=== PATIENT | female | born 1940 | race Caucasian/White ===

== ENCOUNTER → 2018-07-20 | Outpatient (CLI) | payer OTHER | LOC: FIMAGING 14:53 | PROVIDERS: ATTEND Orthopaedic Surgery | DX: M17.11 Unilateral primary osteoarthritis, right knee (principal) ==

== ENCOUNTER 2018-07-28 08:50 | Inpatient (IN) | payer OTHER ==
--- NOTE | 2018-07-28 06:17 | PDHPUP ---
History & Physical Update H&P update statement: This history and physical update is based on an assessment of the patient which was completed after admission or registration (within 24 hours), but prior to the surgery/procedure. H&P update: H&P reviewed & patient examined, no change in patient's condition since H&P completed
[~2018-07-28 08:50] MED LIST: ROPIVACAINE 0.2% 80 MG, EPINEPHrine 0.2 MG, KETOROLAC TROMETHAMINE 30 MG in SYRINGE 0 ML IU ONE; TRANEXAMIC ACID 3,000 MG in NS (SYRINGE) 50 ML IRR ONE; TRANEXAMIC ACID 3,000 MG/50 ML BAG IRR ONE
[2018-07-28] MEDS ORDERED: DEXAMETHASONE 4 MG/ML VIAL IVP ONE (09:34)
[2018-07-28] MEDS ORDERED: ACETAMINOPHEN 325 MG TAB PO ONE (09:34)
[2018-07-28] MEDS ORDERED: FAMOTIDINE 20 MG TAB PO ONE (09:34)
[2018-07-28] MEDS ORDERED: ceFAZolin 2 GM/DEXTROSE 100 ML IV ONE (09:34)
[2018-07-28] MEDS ORDERED: LIDOCAINE 1% 2 ML INJ ID PRN (09:35)
[2018-07-28] MEDS ORDERED: LR 1,000 ML IV ONE (09:35)
--- NOTE | 2018-07-28 10:10 | PDANEPAE ---
ANE History of Present Illness right knee pain ANE Past Medical History - Cardiovascular History Hx Hypertension: No Hx Arrhythmias: No Hx Chest Pain: No Hx Coronary Artery / Peripheral Vascular Disease: No Hx CHF / Valvular Disease: No Hx Palpitations: No - Pulmonary History Hx COPD: No Hx Asthma/Reactive Airway Disease: No Hx Recent Upper Respiratory Infection: No Hx Oxygen in Use at Home: No Hx Sleep Apnea: No Sleep Apnea Screening Result - Last Documented: Negative - Neurologic History Hx Cerebrovascular Accident: No Hx Seizures: No Hx Dementia: No - Endocrine History Hx Diabetes: No Hypothyroid: No Hyperthyroid: No Obesity: no - Renal History Hx Renal Disorders: No - Liver History Hx Hepatic Disorders: No - Neurological & Psychiatric Hx Hx Neurological and Psychiatric Disorders: No Neurological / Psychiatric History Comment: pt passed 5 mnths ago - Cancer History Hx Cancer: No - Congenital Disorder History Hx Congenital Disorders: No - GI History GERD: no Hx Gastrointestinal Disorders: Yes Gastrointestinal History Comment: hx of ulcer. 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 right knee scope ANE Review of Systems Review of systems is: negative Review of Systems: - Exercise capacity Exercise capacity: >=4 METS METS (RN): 4 METS ANE Patient History - Allergies Allergies/Adverse Reactions: No Known Allergies Allergy (Verified 06/25/18 09:44) - Home Medications Home medications: home medication list seen and reviewed Home Medications: Carboxymethylcellulose 1% [Refresh Celluvisc (*)] 1 drop EACHEYE DAILY PRN 06/25 [Last Taken 07/28/18 08:00] Cholecalciferol Vit D3 [Vitamin D3 (*)] 1,000 units PO DAILY 06/25/18 [Last Taken 07/14/18] Cyanocobalamin [Vitamin B12 (*)] 1,000 mcg PO DAILY 06/25/18 [Last Taken ] Herbals/Supplements -Info Only 1 ea PO DAILY 06/25/18 [Last Taken 07/14/18] Ibuprofen [Motrin (*)] 200 mg PO DAILY PRN 06/25/18 [Last Taken 07/14/18] Multivitamins [Multivitamin (*)] 1 each PO DAILY 06/25/18 [Last Taken 07/14/18] - NPO status NPO Status: no food or drink >8 hours - Anes Hx Anes Hx: no prior problems - Smoking Hx Smoking Status: Never smoked - Family Anes Hx Family Anes Hx: none Family Hx Anesthesia Complications: none ANE Labs/Vital Signs - Vital Signs Height: 162.56 cm Weight: 79.379 kg ANE Physical Exam - Airway Neck exam: FROM Mallampati Score: Class 1 Mouth exam: normal dental/mouth exam - Pulmonary Pulmonary: no respiratory distress - Cardiovascular Cardiovascular: regular rate and rhythym - ASA Status ASA Status: II ANE Anesthesia Plan Anesthesia Plan: spinal Regional Anesthesia: adductor canal FNB
[2018-07-28] MEDS ORDERED: PROPOFOL/EMULSION 500 MG/50 ML BOTTLE IV ONE (10:18)
[2018-07-28] MEDS ORDERED: BUPIVACAINE/DEXTROSE 7.5MG/ML 2 ML SPINAL AMP SP ONE (11:03)
[2018-07-28] MEDS ORDERED: METOCLOPRAMIDE 10 MG/2 ML VIAL IVP PRN ×2 (11:49→12:43)
[2018-07-28] MEDS ORDERED: NALOXONE HCL 0.4 MG/ML INJ IVP PRN (11:49)
[2018-07-28] MEDS ORDERED: HYDROmorphONE/DILAUDID 2 MG/ML INJ IVP PRN (11:49)
[2018-07-28] MEDS ORDERED: LABETALOL HCL 5 MG/ML 20 ML MDV IVP PRN (11:49)
[2018-07-28] MEDS ORDERED: DEXAMETHASONE 4 MG/ML VIAL IVP PRN (11:49)
[2018-07-28] MEDS ORDERED: ACETAMINOPHEN 500 MG TAB PO PRN (11:49)
[2018-07-28] MEDS ORDERED: PHENYLEPHRINE HCL 100 MCG/ML SYR IVP PRN (11:49)
[2018-07-28] MEDS ORDERED: LR 500 ML IV PRN (11:49)
[2018-07-28] MEDS ORDERED: ONDANSETRON 4 MG/2 ML VIAL IVP PRN ×2 (11:49→12:43)
[2018-07-28] MEDS ORDERED: ALBUTEROL 3 ML DEYVIAL IH PRN (11:49)
[2018-07-28] MEDS ORDERED: PROMETHAZINE HCL 25 MG/ML INJ IVP PRN ×2 (11:49→12:43)
[2018-07-28] MEDS ORDERED: oxyCODONE IR 5 MG TAB PO PRN (11:49)
[2018-07-28] MEDS ORDERED: MEPERIDINE 25 MG/0.5 ML AMP IVP PRN (11:49)
[2018-07-28] MEDS ORDERED: fentaNYL 100 MCG/2 ML INJ IVP PRN (11:49)
[2018-07-28] MEDS ORDERED: ROPIVACAINE HCL 100 MG/20 ML INJ ONE (11:57)
[2018-07-28] MEDS ORDERED: PROPOFOL 200 MG/20 ML VIAL ONE (11:57)
--- NOTE | 2018-07-28 12:42 | POSTOPPROG ---
Post Op Note Date of Operation: 07/28/18 Surgeon: Addi العلي Med Surg Nurse: waldo العلي PA-C Anesthesiologist: dr. perez Anesthesia: Spinal, Other (Specify) (adductor canal block) Pre-op Diagnosis: right knee OA Post-op Diagnosis: same Indication: right knee pain Procedure: R TKA robot assisted Findings: severe knee OA Inf/Abcess present in the surg proc area at time of surgery?: No EBL: 50-100
[2018-07-28] MEDS ORDERED: PROMETHAZINE HCL 25 MG SUPPR PR PRN (12:43)
[2018-07-28] MEDS ORDERED: DIPHENOXYLATE/ATROPINE LOMOTIL 1 TAB PO PRN (12:43)
[2018-07-28] MEDS ORDERED: TEMAZEPAM 15 MG CAP PO PRN (12:43)
[2018-07-28] MEDS ORDERED: LACTULOSE 20 GM/30 ML UDCUP PO PRN (12:43)
[2018-07-28] MEDS ORDERED: BISACODYL 10 MG SUPP PR PRN (12:43)
[2018-07-28] MEDS ORDERED: ONDANSETRON DISINTEGRATING 4 MG TAB PO PRN (12:43)
[2018-07-28] MEDS ORDERED: MAGNESIUM HYDROXIDE 30 ML UDCUP PO PRN (12:43)
[2018-07-28] MEDS ORDERED: POLYETHYLENE GLYCOL 3350 17 GM PKT PO PRN (12:43)
[2018-07-28] MEDS ORDERED: diphenhydrAMINE 25 MG CAP PO PRN (12:43)
[2018-07-28] MEDS ORDERED: NON-FORMULARY NEW DRUG (Carboxymethylcellulose 1% [Refresh Celluvisc (*)] 1 DROP) EACHEYE PRN (12:45)
[2018-07-28] MEDS ORDERED: LR 1,000 ML IV SCH (13:00)
--- NOTE | 2018-07-28 13:31 | PDMN ---
Medical Necessity Medical [place] [facility] [place] OP: R TKA -- AUTH# [id number] APPROVED FOR CPT 21904 DONE INPT LOS 2 DAYS
--- NOTE | 2018-07-28 14:03 | POSTANESTH ---
Post Anesthetic Evaluation Cardiovascular Status: Normal, Stable Respiratory Status: Normal, Stable Level of Consciousness/Mental Status: Can Participate in Eval Pain Control: Adequate, Prn Tx Ordered Nausea/Vomiting Control: Adequate, Prn Tx Ordered Complications Possibly Related to Anesthesia: None Noted
[2018-07-28] MEDS: CYCLOBENZAPRINE 10 MG TAB PO PRN (17:04)
[2018-07-28] MEDS: ACETAMINOPHEN 325 MG TAB PO SCH ×2 (17:04→23:27)
[2018-07-28] MEDS: oxyCODONE IR 5 MG TAB PO PRN ×2 (18:37→23:26)
[2018-07-28] MEDS: ceFAZolin 2 GM/DEXTROSE 100 ML IV SCH (20:05)
[2018-07-28] MEDS: SENNOSIDES/DOCUSATE SODIUM TAB PO SCH (20:08)
[2018-07-28] MEDS: ASPIRIN 81 MG CHEWABLE TAB PO SCH (20:09)
[2018-07-28] MEDS: FAMOTIDINE 20 MG TAB PO SCH (20:09)
[2018-07-29] MEDS: ceFAZolin 2 GM/DEXTROSE 100 ML IV SCH (03:14)
[2018-07-29] MEDS: oxyCODONE IR 5 MG TAB PO PRN ×5 (03:18→21:19)
[2018-07-29] MEDS: ACETAMINOPHEN 325 MG TAB PO SCH ×3 (05:41→17:46)
[2018-07-29] MEDS: SENNOSIDES/DOCUSATE SODIUM TAB PO SCH ×2 (09:14→21:22)
[2018-07-29] MEDS: FAMOTIDINE 20 MG TAB PO SCH ×2 (09:15→21:22)
[2018-07-29] MEDS: ASPIRIN 81 MG CHEWABLE TAB PO SCH ×2 (09:15→21:22)
--- NOTE | 2018-07-29 09:20 | GOP ---
DATE OF OPERATION: 07/28/2018 SURGEON: Romie Lieberman MD RECORD LABEL INTERNSHIP: Ayana Lieberman, JULIANA ANESTHESIA: Spinal. PREOPERATIVE DIAGNOSIS: Right knee osteoarthritis. POSTOPERATIVE DIAGNOSIS: Right knee osteoarthritis. PROCEDURE PERFORMED: Right total knee arthroplasty with computer navigation, robotic assist. FINDINGS: ESTIMATED BLOOD LOSS: 30 cc. INDICATIONS: The patient is a 77-year-old female with severe and progressive pain and deformity of t he right knee unresponsive to conservative care. The risks and benefits of surgical intervention wer e explained in detail. DESCRIPTION OF PROCEDURE: The patient was brought to the operative room and placed on the table in t he supine position. Spinal anesthesia was induced without difficulty. A pneumatic tourniquet was appl ied about the right proximal thigh, and the leg was prepped and draped in a sterile fashion. The leg bee was applied. After exsanguination by elevation the tourniquet was inflated to 250 mmHg. Incision was made anterior medial from the tibial tuberosity to a point 32 cm proximal to the superio r pole of the patella. Medial parapatellar arthrotomy was carried out from the superior pole of the p atella and posteriorly in line with the fibers of the Type II VMO. The medial collateral ligament was elevated and the infrapatellar fat pad was resected. The patella was everted and the articular surface was excised. A 3 mm patellar button was placed. Attention was turned first to the distal aspect of the femur. After exposure of the femur, 2 half pi ns were placed for fixation of the femoral array. In a similar fashion, 2 pins were placed anteromed ial on the tibia for fixation of the tibial array. External land marking and registration of the hip center was performed without difficulty. Internal femoral and tibial registration was carried out w ithout difficulty and the femoral and tibial checkpoints were placed and verified for accuracy. Attention was turned to the femur. The foot print for the size 3 femoral component was cut with the saw using the [employer] robotic system and verified for accuracy against the CT based plan. In a similar f ashion, the saw was used to cut the footprint for the size 3 tibial component using the [employer] system an d verified for accuracy against the CT based plan. The tibial articular surface was excised without d ifficulty, followed by the intercondylar box cut. The knee was extended and the remnants of the medial and lateral meniscus were excised. The posterior capsule was injected with ropivacaine, epinephrine and Toradol. A size 3 tibial tray was positioned . Trial reduction was then carried out. There was excellent range of motion, alignment, and stability using the 3 x 9 mm polyethylene. All trials were then removed. The joint was thoroughly irrigated and carefully dried. The press-fit c omponents were implanted. The permanent 3 x 9 mm polyethylene was placed without difficulty. The tourniquet was deflated and all bleeders were coagulated. The wound was thoroughly irrigated and closed using interrupted sutures of 2-0 Vicryl for the joint capsule. The subcu was closed with 3-0 V icryl and the skin with 4-0 Monocryl. Dermabond and Steri-Strips were applied followed by a compress susie dressing. The patient was then moved from the operating room to the recovery room in good conditi on, having tolerated the procedure well. /[id number]/MODL
--- NOTE | 2018-07-29 09:24 | SOAPPROG ---
SOAP Progress Note Assessment/Plan: Assessment: Patient is doing well POD 1 s/p Pain management: pain is well controlled on oral pain meds. VTE ppx: recommend 81 mg aspirin morning and evening for 4 weeks, cont SHAWN and SCDs Anemia: level is expected initially postop. Asymptomatic. Continue to monitor D/c planning:patient has done much better than anticipated. Patient is stable, BP stable, pain well controlled and patient is eager for discharge to home. May d/c to home today pending release from PT Plan: 07/29/18 09:21 Subjective: No nausea, vomiting, chest pain, or shortness of breath. Pain well-controlled. Objective: Vital Signs Temp Pulse Resp BP Pulse Ox 36.5 C 65 15 107/56 L 95 07/29/18 07:45 07/29/18 07:45 07/29/18 07:45 07/29/18 07:45 07/29/18 07:45 Laboratory Results 07/29/18 04:21 07/29/18 04:21 07/28/18 07/29/18 07/30/18 05:59 05:59 05:59 Intake Total 1580 Output Total 575 Balance 1005 RLE: incision dressing clean and dry, NVI, positive PF/DF ICD10 Worksheet Patient Problems: Problems Problem Status Onset Primary osteoarthritis of right knee Acute Dislocation of shoulder, anterior, left, closed Acute
--- NOTE | 2018-07-29 10:05 | ASMTLACE ---
LACE Length of stay for Answers: 2 days current admission Acuity / Level of Answers: Yes Care: Did the patient have an inpatient admission? Comorbidities - select Answers: Opioid dependence all that apply / Chronic pain # of Emergency department Answers: 0 visits in the last 6 months Score: 9 Date Signed: 07/29/2018 10:05 AM Electronically Signed By:ANGELIA Palm
[2018-07-29] MEDS: CYCLOBENZAPRINE 10 MG TAB PO PRN (15:16)
[2018-07-30] MEDS: ACETAMINOPHEN 325 MG TAB PO SCH ×3 (00:46→11:30)
[2018-07-30] MEDS: oxyCODONE IR 5 MG TAB PO PRN ×4 (03:50→14:38)
[2018-07-30] MEDS: ASPIRIN 81 MG CHEWABLE TAB PO SCH (09:05)
[2018-07-30] MEDS: FAMOTIDINE 20 MG TAB PO SCH (09:05)
[2018-07-30] MEDS: SENNOSIDES/DOCUSATE SODIUM TAB PO SCH (09:05)
[2018-07-30] MEDS: CYCLOBENZAPRINE 10 MG TAB PO PRN (10:38)
[2018-07-30 11:37] VITALS: BP 120/54
--- NOTE | 2018-07-30 13:45 | PDIAF ---
- Diagnosis Diagnosis: s/p right TKA Code Status: Full Code - Medication Management Discharge Medications: electronically signed and located in the Home Medication List. PICC Care - Routine: N/A - Orders Services needed: Physical Therapy Isolation Type: None Diet Recommendation: no restrictions on diet Diet Texture: Regular Texture Diet Carroll: Not applicable Shawn Stockings Discontinue Date: wear during the day for 2 weeks Wound Care Instructions: Can shower but do not soak incision. Remove roblero dressing after 2 weeks and allow steri-strips to come off on their own. Activity/Weight Bearing Restrictions: No weighted flexion/extension of knee for 6 weeks Additional Instructions: Joint Protocol-Knee Replacement Follow up with Dr. Ocasio office as scheduled You received an adductor canal block yesterday. This covers a significant portion of the pain in the knee. When the numbness to your anterior shins is no longer there, the pain will worsen. If you have not already started taking narcotic pain medications, we recommend starting today even just half a pill at a time so that it is not a surprise when the nerve block wears off today. After surgery instructions: Take Aspirin 81mg by mouth twice daily for 4 weeks (helps to prevent blood clots ) Wear thigh high SHAWN hose on both legs during the daytime for 2 weeks (helps to prevent blood clots and decrease swelling in the surgical leg). It is ok to remove SHAWN hose at night time to give your legs a break. It is common for swelling and bruising to occur in the entire surgical leg even extending to the foot, if concerned call Dr. Bill office [phone] Elevate the surgical leg with the ankle above the hip several times a day. Ideally anytime you are resting throughout the day. Attempt to keep the knee straight while elevating by placing pillows under the ankle instead of the knee to elevate. This may be painful, so please do as much as tolerated. This will help you achieve full knee extension. Use a walker for 7-14 days Start outpatient physical therapy in 7-10 days Wear an ora wrap on the knee for 3-4 days after surgery, then it is no longer needed Do exercises in the book 2-3 times a day Ice at least 3-5 times a day for 30 minutes each time, if not more often. We also recommend using the ice machine before falling asleep to help with pain If you have further questions that are not addressed here, please look at the information packet handed to you at the preop appointment. Most will be answered on the FAQs, after surgery instructions and incision care pages. *IF YOU HAVE A LIFE THREATENING EMERGENCY, CALL 911. FOR NON-LIFE THREATENING ISSUES, PLEASE CALL DR. OCASIO OFFICE FIRST. A PHYSICIAN IS FOREIGN TRADE TEACHER 26/01. Incision/Dressing Care: May shower tomorrow, do not submerge in water. you do not have to cover the incision dressing for showers Keep the incision (roblero) dressing clean and dry. If the incision dressing gets soiled or wet underneath, change dressing to the dressing given to you by the hospital. (roblero dressing will turn black if drainage occurs) Remove incision dressing (roblero one) two weeks after surgery. Leave steri strips alone. They will fall off on their own. Do not have anyone else remove the incision dressing prior to the stated recommendation (2 weeks after surgery). If there are incision concerns, contact Dr. Bill office. (Ayana or Dr. Lieberman may remove earlier if concerns arise) If incision site (roblero dressing) has drainage call Dr. Bill office, . Ayana and Dr. Lieberman may ask you to come into the office for further evaluation - Follow Up Care Current Providers and Referrals: Tam Corbett MD [Primary Care Provider] - Ayana Lieberman PA [Physician Neonatal Intensive Care Nurse] - 08/19/18 10:15 am
--- NOTE | 2018-07-30 13:55 | PDFACE2FAC ---
Face to Face Encounter 1. I certify that this patient is under my care and that I, or a nurse practitioner or physician's bus assistant working with me, had a [id number] encounter that meets the physician [id number] encounter requirements with this patient on 07/30/18. 2. I certify that based on my findings, the following services are medically necessary home health services: [ Nursing] [X Physical Therapy] [ Speech-Language Pathology] 3. The medical condition and clinical findings that support the need for specialized skills, knowledge and judgement of the above services are: [s/p R TKA and advanced age] 4. I certify this patient is homebound* because [the patient's condition restricts their ability to leave their home except with the assistance of another individual or the aid of a supportive device.] __patient is using a FWW and cannot drive postop R TKA I certify that this patient is confined to his/her home and needs intermittent mcc care, physical and/or speech therapy. This patient is under my care and I have authorized home health services. * Homebound is defined by Medicare as follows: absences from home require considerable and tacking effort and or for medical reasons or religion services or are infrequent or of short duration when for other reasons*.
--- NOTE | 2018-07-30 14:03 | SOAPPROG ---
SOAP Progress Note Assessment/Plan: Assessment: Patient is doing well POD 1 s/p Pain management: pain is well controlled on oral pain meds. VTE ppx: recommend 81 mg aspirin morning and evening for 4 weeks, cont SHAWN and SCDs Anemia: level is expected initially postop. Asymptomatic. Continue to monitor D/c planning: Patient is stable, BP stable, pain well controlled and patient is eager for discharge to home. Will d/c home today. Pt. requests in-home PT. Plan: 07/29/18 09:21 07/30/18 14:00 Subjective: No nausea, vomiting, chest pain or shortness of breath. Pain well-controlled. After two nights in hospital, pt. is ready to be discharged to home today. She has family to help care for her at home but requests in-home PT. Objective: Vital Signs Temp Pulse Resp BP Pulse Ox 36.8 C 85 16 120/54 L 96 07/30/18 11:36 07/30/18 11:36 07/30/18 11:36 07/30/18 11:36 07/30/18 11:36 Laboratory Results 07/30/18 04:29 07/29/18 04:21 07/29/18 07/30/18 07/31/18 05:59 05:59 05:59 Intake Total 1580 800 240 Output Total 002 835 6403 Balance 1005 0 -1260 RLE: incision dressing clean and dry, NVI, positive PF/DF ICD10 Worksheet Patient Problems: Problems Problem Status Onset Primary osteoarthritis of right knee Acute Dislocation of shoulder, anterior, left, closed Acute
--- NOTE | 2018-07-30 15:27 | ASMTCMCOM ---
CM Note CM Note Notes: Pt had planned OA of knee. PT rec home/outpatient. ordered [facility] PT. Pt and family were informed about [facility] preferred HC providers but they are adamant they want [facility]. Referral sent in [employer], [facility] is not in network with pt's [facility]. Pt family is adamant they want [facility] specifically for PT Isai James and they ask to have him for private pay. Yue with [facility] coordinates with family on hiring Isai. [facility] has the [facility] orders if they need it. Pt has extensive family support system. Pt will d/c to dgr LISBETH Caldwell's home [address] [place] [address] Dr. Liu [phone] and [facility] has this information. Date Signed: 07/30/2018 03:27 PM Electronically Signed By:ANGELIA Palm
--- NOTE | 2018-07-31 10:08 | ASDISCHSUM ---
Discharge Information Plan Status:Home with Home Health Medically Cleared to Leave: Discharge Date:07/30/2018 03:34 PM CM D/C Disposition: ADT D/C Disposition:Home, Routine, Self-Care Projected Discharge Date:07/30/2018 11:00 AM Transportation at D/C: Discharge Delay Reason: Follow-Up Date:07/30/2018 11:00 AM Discharge Slot: Final Diagnosis: Placement Information Referral Type:*Home Health Care Services Referral ID:[id number] Provider Name:[facility] Address 1:[address] [facility] Phone Number: Address 2: Fax Number: City:[place] Selection Factors: State:[place] Patient Contact Information Contact Name:SUKHDEEP Relationship:Son Address: City: [facility] Phone: [facility] [address]/[facility] Code: Email: Financial Information Financial Class:[facility] [employer] [facility] Desc[facility] Primary Plan Number:[id number] Secondary Plan Desc:MEDICARE INPATIENT Secondary Plan Number:[id number] Assessment Information LACE LACE Length of stay for Answers: 2 days current admission Acuity / Level of Answers: Yes Care: Did the patient have an inpatient admission? Comorbidities - select Answers: Opioid dependence all that apply / Chronic pain # of Emergency department Answers: 0 visits in the last 6 months Score: 9 Date Signed: 07/29/2018 10:05 AM Electronically Signed By:ANGELIA Palm [facility] AYSE Progress Note CM Octavio CM Note Notes: Pt had planned OA of knee. PT rec home/outpatient. ordered [facility] PT. Pt and family were informed about [facility] preferred HC providers but they are adamant they want [facility]. [facility], [facility] is not in network with pt's [facility]. Pt family is adamant they want [facility] specifically for PT Isai James and they ask to have him for private pay. Yue with [facility] coordinates with family on hiring Isai. Rohan has the [facility] orders if they need it. Pt has extensive family support system. Pt will d/c to [facility] LISBETH Caldwell's home [address] [place] [address] Dr. Liu [phone] and [facility] has this information. Date Signed: 07/30/2018 03:27 PM Electronically Signed By:ANGELIA Palm Intervention Information
== END 2018-07-30 15:34 | disposition home or self-care (01) | DRG 470 ==
LOC: F3E 08:50 → EDSTATUS 12:00 → F3N 13:55
PROVIDERS: ADMIT Orthopaedic Surgery; ATTEND Orthopaedic Surgery
PROC: 8E0Y0CZ Robotic Assisted Procedure of Lower Extremity, Open Approach (ICD-10-PCS; principal; 2018-07-28 11:00)
PROC: 0SRC0JZ Replacement of Right Knee Joint with Synthetic Substitute, Open Approach (ICD-10-PCS; principal; 2018-07-28 11:00)
DX: M17.11 Unilateral primary osteoarthritis, right knee (principal)
CPT/HCPCS: 97110-GP; 97116-GP; 97161-GP; J0171; J0690; J1100; J1885; J2704; J2795